=== PATIENT | female | born 1975 | race Caucasian/White ===

== ENCOUNTER 2022-01-12 10:44 | Emergency (ER) | payer MEDICAID ==
[~2022-01-12] VITALS: Ht 177.8 cm; Wt 113.6 kg
[2022-01-12 10:47] VITALS: BP 136/80
[2022-01-12] MEDS ORDERED: AMOX-580 PO (11:51)
[2022-01-12] MEDS ORDERED: ACET1TAB25 PO (11:51)
[2022-01-12] MEDS ORDERED: acetaminophen w/codeine (30MG) #3 tablet PO ONE (11:55)
== END 2022-01-12 12:13 | disposition home or self-care (01) ==
LOC: ER 10:45
DX: K04.7 Periapical abscess without sinus (principal)
CPT/HCPCS: 99283

== ENCOUNTER 2025-09-26 12:47 | Emergency (ER) | payer SELFPAY ==
[2025-09-26 12:49] VITALS: TEMP 96.8
[2025-09-26 13:32] LABS: MEAN PLATELET VOLUME 9.1 FL (7.4-10.4); RED CELL DISTRIBUTION WIDTH 14.5 % (11.5-14.5)
--- NOTE | 2025-09-26 13:45 | RADIOLOGY REPORT ---
CHEST RADIOGRAPH INDICATION: CP TECHNIQUE: Single frontal view of the chest was obtained. COMPARISON: None FINDINGS: No focal consolidation. Probable small right pleural effusion. No pneumothorax. Nonenlarged cardiomediastinal silhouette. IMPRESSION: Probable small right pleural effusion.
[2025-09-26 13:55] LABS: CREATININE 0.98 MG/DL (0.40-0.90); PRO BRAIN NATRIURETIC PEPTIDE 92 PG/ML (0-125); TOTAL CARBON DIOXIDE 26.5 MMOL/L (24-32); eGFR 60 ML/MIN
[2025-09-26 14:29] VITALS: BP 130/81; PULSE 65; RESP 19; O2SAT 95
--- NOTE | 2025-09-26 15:47 | Physician Documentation ---
History of Present Illness ~ Chief Complaint: Shortness of Breath Stated Complaint: SOB/DIZZINESS Time Seen by MD: 15:29 Primary Medical Doctor: DR Valdivia FONTANA Source: patient Mode of Arrival: POV Exam Limitations: no limitations HPI Patient with history of asthma presents secondary to shortness for breath and right shoulder pain. Pain is worse with coughing and deep breathing. States she has a history of collapsed lung that occurred in 2019 required intubation and her lung to be reinflated. She has been treated with albuterol with no effect. No fevers or chills. Complains of cough. No sputum production. Was asked, but otherwise denies review of systems. Medication Reconciliation Allergies: Coded Allergies: No Known Allergies (Unverified , 09/26/25) Scheduled Furosemide* (Lasix*), 1 TAB PO BID Potassium Chloride* (Potassium Chloride*), 1 CAP PO DAILY Prednisone* (Prednisone*), 2 TAB PO DAILY Past Medical History Past Medical History: No Pertinent History, Asthma Past Surgical History: noncontributory Smoking Status: Current some day smoker Alcohol Use: Other Review of Systems ROS Review of systems negative except documented in HPI. Physical Exam Vital Signs: RN Vital Signs have been reviewed: Yes, Temperature: 96.8, Source: Temporal, Heart Rate: 65, Respiratory Rate: 19, BP: 130/81, Pulse Oximetry: 95 Oxygen Flow Rate: 0 Pulse Oximetry Reflects: adequate oxygenation Physical Exam General: Awake, alert, oriented. No apparent distress Neck: Supple. Normal range of motion. No JVD Respiratory: Lungs are clear to auscultation bilaterally. No respiratory distress. Chest: Normal shape and size. No accessory muscle use. Cardiovascular: Regular rate and rhythm. S1-S2. No murmur, gallop, rub. Gastrointestinal: Abdomen is soft. Nontender to palpation. Bowel sounds present. Extremities: No lower extremity edema, cyanosis or clubbing. Neurologic: Alert and oriented x4. Nonfocal Psychiatric: Normal mood and affect. Skin: Normal color. Warm and dry. Progress Results/Orders Results/Orders Vital Signs 09/26/25 09/26/25 09/26/25 12:49 14:25 14:29 Temp 96.8 Pulse 91 65 Resp 15 18 19 B/P (MAP) 118/79 130/81 (97) Pulse Ox 98 95 O2 Flow Rate 0 Laboratory Tests Test 09/26/25 13:02 09/26/25 15:17 White Blood Count 6.8 Red Blood Count 4.47 Hemoglobin 13.8 Hematocrit 41.6 Mean Corpuscular Volume 93.1 Mean Corpuscular Hemoglobin 30.9 Mean Corpuscular Hemoglobin Concent 33.2 Red Cell Distribution Width 14.5 Platelet Count 286 Mean Platelet Volume 9.1 Neutrophils (%) (Auto) 72.1 Lymphocytes (%) (Auto) 15.3 L Monocytes (%) (Auto) 4.8 Eosinophils (%) (Auto) 7.0 H Basophils (%) (Auto) 0.8 Neutrophils # (Auto) 4.9 Lymphocytes # (Auto) 1.0 L Monocytes # (Auto) 0.3 Eosinophils # (Auto) 0.5 Basophils # (Auto) 0.1 CBC Comment Sodium Level 142 Potassium Level 4.2 Chloride Level 110 H Carbon Dioxide Level 26.5 Anion Gap 6 L Blood Urea Nitrogen 10 Creatinine 0.98 H Estimated GFR/1.73 m2 60 BUN/Creatinine Ratio 10.2 Glucose Level 98 Calcium Level 8.7 Troponin I High Sensitivity 5 6 Pro-B-Type Natriuretic Peptide 92 Albumin 3.4 Chemistry Comments Troponin I High Sens Percent Delta 20 Troponin I Hi Sens Absolute Change 1 EKG/XRAY/CT/US/VASC/MRI EKG : Intepreting Monitor?: Yes Indication: shortness of breath EKG: NSR EKG Blocks: none [place]: normal Hypertrophy: none Additional Comment Sinus rhythm rate of 73. Normal axis. No acute ST changes. Chest X-Ray : Interpreted By: both Views: 1 VIEW Lungs: normal Mediastinum: normal Ribs/Bones: normal Abdomen: normal Impression: pulmonary effusion Additional Comments [address] [address] DIAGNOSTIC RADIOLOGY Patient: FREDY KENT Medical Record: [id number] [facility] : 1975, Age: 50 Sex: Female Location: ER Patient Status: REG ER Service Date/Time: 09/26/25/ 1315 Ordering Physician: SHERYL MIJARES MD Exam: CHEST,SINGLE VIEW CHEST RADIOGRAPH INDICATION: CP TECHNIQUE: Single frontal view of the chest was obtained. COMPARISON: None FINDINGS: No focal consolidation. Probable small right pleural effusion. No pneumothorax. Nonenlarged cardiomediastinal silhouette. IMPRESSION: Probable small right pleural effusion. Electronically Signed by:EDIE RODAS MD Date & Time: 09/26/251342 Dictated by: EDIE RODAS MD Dictation date and time: 09/26/251342 Primary Care Provider: NO PRIMARY CARE PROVIDER cc: SHERYL MIJARES MD ~ Heart Score: Heart Score Response (Comments) Value History Slightly Suspicious 0 EKG Normal 0 Age 45-64 1 Risk Factors No known risk factors 0 Troponin Normal limit 0 Total 1 Medical Decision Making Additional information obtaine: N/A Findings Patient with history of asthma presents secondary to increased shortness for breath. She has a known history of asthma. Also states history of having a pneumothorax requiring intubation. She had labs done that were unremarkable. High sensitivity troponin was negative. ProBNP was also unremarkable. Chest x- ray was performed that shows small pleural effusion the right. No pneumonia. Additionally, her white blood cell count was normal. EKG revealed normal sinus rhythm. No acute ST changes. Low clinical suspicion for ACS. Clinical presentation not consistent with aortic dissection. This time, low clinical suspicion for pulmonary embolism. Underlying asthma/COPD suspected. Being treated with oral prednisone. She had a small pleural effusion on her chest x- ray which may also be contributing to her shortness for breath. Therefore, felipe valdivia treated with oral Lasix for the next five days. She was educated to follow up. Warning signs and symptoms were reviewed. She will follow up with her primary care provider as scheduled next week. Verbal understanding of all discharge instructions. Heart Score: 1 Differential Dx:Considerations: Include: asthma, bronchitis, CHF, COPD, hypertension, accelerated, panic attack, pneumonia, pneumonitis, pneumothorax, pulmonary embolism, respiratory distress Departure Time of Disposition: 16:06 Disposition: 01 HOME / SELF CARE / HOMELESS Impression: Primary Impression: COPD exacerbation Additional Impressions: Pleural effusion Shortness of breath Condition: Stable Discharge Instructions: Asthma, Adult, [id number] Additional Instructions: Your chest x-ray showed a small pleural effusion. I will give you some Lasix which is a water pill that can help with this. You will take it for the next five days along with potassium. Take steroids as prescribed. Follow up with your primary care as scheduled next week. Return if no improvement, increased shortness for breath or any other concerns. Referrals: NO PRIMARY CARE PROVIDER (PCP) Prescriptions Prednisone* (Prednisone*) 20 Mg Tablet 2 TAB PO DAILY for 5 Days, #10 TAB Prov: ZAK CONKLIN NP 09/26/25 Potassium Chloride* (Potassium Chloride*) 10 Meq Capsule.sa 1 CAP PO DAILY for 5 Days, #5 CAP Prov: ZAK CONKLIN NP 09/26/25 Furosemide* (Lasix*) 20 Mg Tablet 1 TAB PO BID for 5 Days, #5 TAB Prov: ZAK CONKLIN NP 09/26/25 Education Educated: Patient Educated regarding: diagnosis, treatment, need for follow up Signature Scribe Signature: No scribe Attestation: The note accurately reflects work and decisions made by me.Zak Conklin - NINO 09/26/25 17:19 This note was created with the assistance of voice recognition software whereby errors in grammar, syntax, and/or spelling may have occurred despite active proofreading efforts by the author. Please do not hesitate to contact the provider for clarification or for questions regarding the content of this document. ZAK CONKLIN NP Sep 26, 2025 15:47
[2025-09-26] MEDS ORDERED: FURO-150 PO (16:08)
[2025-09-26] MEDS ORDERED: POTA10CA95 PO (16:08)
[2025-09-26] MEDS ORDERED: PRED20TA PO (16:08)
--- NOTE | 2025-09-27 05:59 | ELECTROCARDIOGRAPH REPORT ---
[facility] Test Date: 2025-09-26 Test Time: 12:54:30 Pat Name: FREDY KENT Department: EMERGENCY ROOM Patient ID: [id number] Room: Gender: F [employer]: : 1975 Requested By: SHERYL MIJARES Order Number: [id number] Reading MD: Dr. Mookie Eisenberg Measurements Intervals [place] Rate: 73 P: 33 MI: 133 QRS: 53 QRSD: 90 T: 56 QT: 346 QTc: 382 Interpretive Statements Sinus rhythm Consider right atrial enlargement Probable right ventricular hypertrophy Electronically Signed On 09-29-2025 21:15:[address] Mookie Eisenberg Please click the below link to view image of tracing.
== END 2025-09-26 16:19 | disposition home or self-care (01) ==
LOC: ER 12:48
DX: J44.1 Chronic obstructive pulmonary disease with (acute) exacerbation (principal); J90 Pleural effusion, not elsewhere classified; F17.200 Nicotine dependence, unspecified, uncomplicated; Z79.899 Other long term (current) drug therapy
CPT/HCPCS: 36415; 71045; 80048; 83880; 84484; 85025; 93005; 99285